=== PATIENT | male | born 1995 | race Caucasian/White ===

== ENCOUNTER 2018-12-18 10:17 | Emergency (ER) | payer OTHER ==
[2018-12-18 10:36] VITALS: BP 113/62
[2018-12-18] MEDS ORDERED: Dexamethasone TAB* 4 MG PO ONE (10:53)
--- NOTE | 2018-12-18 10:55 | UC ---
UC General HPI - HPI Summary HPI Summary: SORE THROAT SINCE YESTERDAY. PAINFUL TO SWALLOW "FEELS RAW". NO FEVER. - History of Current Complaint Chief Complaint: UCGeneralIllness Stated Complaint: SORE THROAT Time Seen by Provider: 12/18/18 10:38 Hx Obtained From: Patient Onset/Duration: Gradual Onset Timing: Constant Pain Intensity: 6 Associated Signs & Symptoms: Negative: Fever - Allergy/Home Medications Allergies/Adverse Reactions: Allergies Allergy/AdvReac Type Severity Reaction Status Date / Time amoxicillin Allergy Intermediate Rash Verified 12/18/18 10:36 Home Medications: Home Medications Ibuprofen TAB* [Advil TAB*] 200 mg PO Q6H PRN 12/18/18 [History Confirmed ] PMH/Surg Hx/FS Hx/Imm Hx Previously Healthy: Yes - Surgical History Surgical History: None - Social History Occupation: Student Alcohol Use: Weekly Substance Use Type: None Smoking Status (MU): Never Smoked Tobacco - Immunization History Vaccination Up to Date: Yes Review of Systems All Other Systems Reviewed And Are Negative: Yes Constitutional: Positive: Negative Skin: Positive: Negative Eyes: Positive: Negative ENT: Positive: Sore Throat Respiratory: Positive: Negative Cardiovascular: Positive: Negative Gastrointestinal: Positive: Negative Genitourinary: Positive: Negative Motor: Positive: Negative Neurovascular: Positive: Negative Musculoskeletal: Positive: Negative Neurological: Positive: Negative Psychological: Positive: Negative Is Patient Immunocompromised?: No Physical Exam Triage Information Reviewed: Yes Appearance: Well-Appearing Vital Signs: Initial Vital Signs Temp 97.4 F 12/18/18 10:33 Pulse 82 12/18/18 10:33 Resp 16 12/18/18 10:33 BP 113/62 12/18/18 10:33 Pulse Ox 97 12/18/18 10:33 Vital Signs Reviewed: Yes Eyes: Positive: Conjunctiva Clear ENT: Positive: Pharyngeal erythema, TMs normal, Muffled voice, Uvula midline - WITH MILD TO MODERATED ERYTHEMA AND SWELLING. Negative: Nasal congestion, Nasal drainage, Trismus, Hoarse voice Neck: Positive: Supple, Tenderness @ - PERITONSILAR NODES WHICH ARE ENLARGED. Respiratory: Positive: Lungs clear, Normal breath sounds, No respiratory distress Cardiovascular: Positive: RRR, No Murmur Abdomen Description: Positive: Nontender, No Organomegaly, Soft Bowel Sounds: Positive: Present Musculoskeletal: Positive: ROM Intact Neurological: Positive: Alert Psychological: Positive: Age Appropriate Behavior Skin Exam: Normal Course/Dx - Course Course Of Treatment: no uvular shift or trismus and handling secretions no concern for abscess. rapid strep=neg. i am going to tx for presumptive bacterial infection given pt exam and worsening. need for close f/u stressed plus go to er for worsening to which pt agrees. - Differential Dx - Multi-Symptom Differential Diagnoses: Other - pharyngitis uvulitis cellulitis peritonsil abscess - Diagnoses Provider Diagnosis: Uvulitis Discharge - Sign-Out/Discharge Documenting (check all that apply): Patient Departure All imaging exams completed and their final reports reviewed: No Studies - Discharge Plan Condition: Stable Disposition: HOME Prescriptions: Clindamycin Cap(NF) [Clindamycin Cap 300 mg Cap(NF)] 300 mg PO TID 10 Days #30 cap Patient Education Materials: Uvulitis (ED) Forms: *School Release Referrals: [facility] [[facility]BUSINESS, APPLICATION, OTHER] - 5 Days - Billing Disposition and Condition Condition: STABLE Disposition: Home - Attestation Statements Provider Attestation: I was available for consult. This patient was seen by the LUCINA. The patient was not presented to, seen by, or examined by me. -Haylie
== END 2018-12-18 11:04 | disposition home or self-care (01) ==
LOC: UCCORT 10:17
DX: K12.2 Cellulitis and abscess of mouth (principal); Z88.0 Allergy status to penicillin
CPT/HCPCS: 87651; 99202; G0463; J8540